=== PATIENT | male | born 1955 | race Two or more races ===

== ENCOUNTER 2025-07-06 21:41 | Emergency (ER) | payer OTHER ==
[~2025-07-06] VITALS: Ht 175.3 cm; Wt 93.0 kg
[2025-07-06 22:00] VITALS: PULSE 132; RESP 24; O2SAT 96
--- NOTE | 2025-07-06 22:06 | ED.PDOC ---
SOB-HPI HPI Comments 69 year old male presents to the ED with a chief complaint of shortness of breath onset 4 days. Patient states he began experiencing shortness of breath 4 days ago, worsens when he lays down. He is also experiencing BLE swelling, weakness, constipation and palpitations. Upon ED arrival O2 sat was 89% on RA, was placed on 4L O2 sat was 95%. Denies fever, chills, chest pain, dizziness, headache, blurred vision, nausea, vomiting, cough, cold, congestion, abdominal pain. No other symptoms or modifying factors present at this time. Chief Complaint: Shortness of Breath Time Seen by MD: 22:00 Reviewed notes: Medications, Allergies Information Source: Patient Mode of Arrival: Wheelchair Severity: Mild Timing: Days Duration: Since onset Context: At Rest PE Risk Factors: None History of: None Prehospital treatment: None Modifying Factors: Nothing Associated Signs and Symptoms: Leg Swelling, Other Past Medical History PAST MEDICAL HISTORY: Denies Surgical History: Denies all surgeries Family History Family History: Reviewed,noncontributory to illness, No family hx of Cancer, No family hx of DM, No family hx of Heart eduin, No family hx of HTN, No family hx ofKidney eduin, No family hx of Liver eduin, No family hx of Lung eduin, No family hx of Stroke Social History Smoker: Non-Smoker Alcohol: Denies ETOH Use Drugs: Denies Drug Use Lives In: Home Constitutional: reports: weakness; denies: chills, diaphoresis, fatigue, fever, malaise, sweats, others EENTM: denies: blurred vision, double vision, ear bleeding, ear discharge, ear drainage, ear pain, ear ringing, eye pain, eye redness, hearing loss, mouth pain, mouth swelling, nasal discharge, nose bleeding, nose congestion, nose pain, photophobia, tearing, throat pain, throat swelling, voice changes, others Respiratory: reports: shortness of breath; denies: cough, hemoptysis, orthopnea, SOB at rest, SOB with excertion, stridor, wheezing, others Cardiovascular: reports: palpitations; denies: chest pain, dizzy spells, diaphoresis, Dyspnea on exertion, edema, irregular heart beat, left arm pain, lightheadedness, PND, syncope, others Gastrointestinal: reports: constipated; denies: abdomen distended, abdominal pain, blood streaked bowels, diarrhea, dysphagia, difficulty swallowing, hematemesis, melena, nausea, poor appetite, poor fluid intake, rectal bleeding, rectal pain, vomiting, others Genitourinary: denies: burning, dysuria, flank pain, frequency, hematuria, incontinence, penile discharge, penile sore, pain, testicle pain, testicle swelling, urgency, others Neurological: reports: weakness; denies: dizziness, fainting, headache, left sided numbness, left sided weakness, numbness, paresthesia, pre-existing deficit, right sided numbness, right sided weakness, seizure, speech problems, tingling, tremors, others Musculoskeletal: reports: others (BLE swelling); denies: back pain, gout, joint pain, joint swelling, muscle pain, muscle stiffness, neck pain Integumetry: denies: bruises, change in color, change in hair/nails, dryness, laceration, lesions, lumps, rash, wounds, others Allergic/Immunocompromised: denies: Difficulty Healing, Frequent Infections, Hives, Itching, others Hematologic/Lymphatic: denies: anemia, blood clots, easy bleeding, easy bruising, swollen glands, others Endocrine: denies: excessive hunger, excessive sweating, excessive thirst, excessive urination, flushing, intolerance to cold, intolerance to heat, unexplained weight gain, unexplained weight loss, others Psychiatric: denies: anxiety, bipolar disorder, depression, hopeless, panic disorder, schizophrenia, sleepless, suicidal, others All Other Systems: Reviewed and Negative Physical Exam General Appearance: Normal HEENT: Normal ENT Inspection, Pharynx Normal, TMs Normal Neck: Full Range of Motion, Non-Tender, Normal, Normal Inspection Respiratory: Decreased Breath Sounds, Other Cardiovascular: No Edema, No JVD, No Murmur, No Gallop, Normal Peripheral Pulses, Regular Rate/Rhythm Breast Exam: Deferred Gastrointestinal: No Organomegaly, Non Tender, No Pulsatile Mass, Normal Bowel Sounds, Soft Genitalia: Deferred Pelvic: Deferred Rectal: Deferred Extremities: No calf tenderness, Normal capillary refill, Normal inspection, Normal range of motion, Non-tender, No pedal edema Musculoskeletal : Apperance: Normal 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 Was a procedure done?: No Differential Dx Differential Diagnosis: Asthma, Bronchitis, CHF, COPD, Pulmonary Embolism, Respiratory Distress, URI, Other X-Ray, Labs, Meds, VS Vital Signs Date Time Temp Pulse Resp B/P (MAP) Pulse Ox O2 Delivery O2 Flow Rate FiO2 07/07/25 01:00 98 26 138/98 (111) 94 07/07/25 00:40 97 07/06/25 23:36 101 143/93 07/06/25 23:00 101 07/06/25 23:00 99 25 139/95 (110) 94 07/06/25 22:35 112 150/82 07/06/25 22:20 112 22 150/82 (104) 96 07/06/25 22:06 127 07/06/25 22:00 132 24 96 Simple Mask* 10 99 07/06/25 22:00 127 07/06/25 22:00 98.5 132 22 155/85 (108) 96 98.5 07/06/25 21:43 98.3 114 22 153/99 89 98.3 Lab Test 07/07/25 00:50 07/06/25 23:02 07/06/25 22:50 07/06/25 22:04 Range/Units Troponin I High Sensitivity 47 41 39 </=54 ng/L Blood Gas Specimen Type Arterial Blood Gas Sample Site Left radial Blood Gas Patient Temperature 37.0 Arterial Blood Date Drawn [id number] Arterial Blood pH 7.469 H 7.350-7.450 Arterial Blood Partial Pressure CO2 29.1 L 35.0-48.0 mmHg Arterial Blood Partial Pressure O2 81.6 L 83.0-108.0 mmHg Arterial Blood HCO3 20.7 L 21.0-28.0 mmol/L Arterial Blood Oxygen Saturation 96.5 94.0-98.0 % Arterial Blood Base Excess -1.8 -2.0-3.0 mmol/L Arterial Blood Oxyhemoglobin 95.0 94.0-98.0 % Arterial Blood Carboxyhemoglobin 1.3 0.5-1.5 % Arterial Blood Methemoglobin 0.3 0.0-1.5 % Bharathi Test Yes Blood Gas Total Hemoglobin 14.40 13.5-17.5 g/dL Blood Gas Liter Flow 9.00 Blood Gas Modality Mask - simple FiO2 % 56.0 White Blood Count 10.4 4.4-10.8 10^3/uL Red Blood Count 5.12 4.5-5.90 10^6/uL Hemoglobin 14.3 13.5-17.5 g/dL Hematocrit 43.3 41.0-53.0 % Mean Corpuscular Volume 84.5 80.0-100.0 fL Mean Corpuscular Hemoglobin 28.0 28.0-32.0 pg Mean Corpuscular Hemoglobin Concent 33.1 32.0-36.0 g/dL Red Cell Distribution Width 16.3 H 11.8-14.3 % Platelet Count 229 140-450 10^3/uL Mean Platelet Volume 8.6 6.9-10.8 fL Neutrophils (%) (Auto) 70.6 37.0-80.0 % Lymphocytes (%) (Auto) 20.7 10.0-50.0 % Monocytes (%) (Auto) 5.9 0.0-12.0 % Eosinophils (%) (Auto) 2.1 0.0-7.0 % Basophils (%) (Auto) 0.7 0.0-2.0 % Neutrophils # (Auto) 7.3 1.6-8.6 10 ^3/uL Lymphocytes # (Auto) 2.2 0.4-5.4 10 ^3/uL Monocytes # (Auto) 0.6 0-1.3 10 ^3/uL Eosinophils # (Auto) 0.2 0-0.8 10 ^3/uL Basophils # (Auto) 0.1 0-0.2 10 ^3/uL Nucleated Red Blood Cells 0.1 % Prothrombin Time 11.9 H 9.3-11.8 sec Prothrombin Time INR 1.14 0.9-1.15 Activated Partial Thromboplast Time 28.1 24.5-34.5 SEC Sodium Level 144 136-145 mmol/L Potassium Level 3.7 3.5-5.1 mmol/L Chloride Level 111 H 98-107 mmol/L Carbon Dioxide Level 21 20-31 mmol/L Anion Gap 12 5-15 Blood Urea Nitrogen 10 9-23 mg/dL Creatinine 0.68 L 0.700-1.30 mg/dL Glomerular Filtration Rate Calc 99 >90 mL/min BUN/Creatinine Ratio 14.7 10.0-20.0 Serum Glucose 100 74-106 mg/dL Calcium Level 8.5 L 8.7-10.4 mg/dL Magnesium Level 1.9 1.6-2.6 mg/dL Total Bilirubin 1.2 H 0.2-1.0 mg/dL Aspartate Amino Transferase (AST) 21 13-40 U/L Alanine Aminotransferase (ALT) 12 7-40 U/L Alkaline Phosphatase 99 46-116 U/L B-Type Natriuretic Peptide 854.54 0-100 pg/mL Total Protein 7.1 5.7-8.2 g/dL Albumin 4.4 3.2-4.8 g/dL Thyroid Stimulating Hormone (TSH) 0.67 0.55-4.78 uIU/mL Free Thyroxine (T4) Calculated 1.48 0.89-1.76 ng/dL Test 07/06/25 22:03 Range/Units POC Glucose 102 70-106 mg/dl Current Medications Medications (Trade) Dose Ordered Sig/Karey Route Start Time Stop Time Status Last Admin Metoprolol Tartrate (Lopressor) 5 mg Q5M IV 07/06/25 22:15 07/06/25 22:26 DC 07/06/25 23:36 [place] [address] Ph: [phone] DIAGNOSTIC IMAGING Diagnostic Imaging Report : [id number] Signed PATIENT: KAVIN CLARKE ACCT: [id number] UNIT: [id number] : 1955 LOC: ER ROOM / BED: / AGE / SEX: 69 / M ADM STATUS: REG ER SERVICE 00 ORDERING PHYSICIAN: ELLI ACUÑA MD PROCEDURE(s): CXRP - CHEST PORTABLE REASON: sob ORDER NUMBER(s): [id number], ACCESSION NUMBER(s): [id number] INDICATION: sob TECHNIQUE: Frontal view of the chest. COMPARISON: None FINDINGS/IMPRESSION: A pacer overlies the left mid and lower thorax, obscuring evaluation. Small left pleural effusion with adjacent opacity. Hazy bilateral pulmonary opacities with prominence of the interstitial markings. Prominence of the cardiomediastinal silhouette, likely accentuated by technique. No pneumothorax. No acute osseous abnormality. Incompletely assessed cervical fusion hardware. ATED BY: RAFAEL TRIPP MD DICTATED DATE/TIME: 07/06/252253 SIGNED BY: RAFAEL TRIPP MD SIGNED DATE/TIME: 07/06/252253 CC: Time of 1ST Reevaluation: 22:30 Reevaluation 1ST: Unchanged Patient Education/Counseling: Diagnosis, Treatment, Prognosis Family Education/Counseling: No Family Present SEPSIS Sepsis Screen Date sepsis recognized/suspect: Jul 06, 2025 Time Sepsis recognized/suspect: 2145 Recent Procedure: No On Antibiotic Therapy: No Respiratory Rate >20: Yes Heart Rate >90: Yes Temp<36 C (96.8 F) or >38.3 C: No SBP <90 or MAP <65 mmHG: No New Acute Mental Status Change: No Is the patient on CPAP, BIPAP,: No Physician Orders Chest Portable (07/06/25 22:01) Urinalysis (07/06/25 22:01) Abg W/ Co-Ox (07/06/25 22:39) Lactic Acid W/ Reflex Order (07/07/25 02:34) Blood Culture (07/07/25 02:34) Ceftriaxone Ivpb Rocephin (07/07/25 02:45) Vital Signs Date Time Temp Pulse Resp B/P (MAP) Pulse Ox O2 Delivery O2 Flow Rate FiO2 07/07/25 01:00 98 26 138/98 (111) 94 07/07/25 00:40 97 07/06/25 23:36 101 143/93 07/06/25 23:00 101 07/06/25 23:00 99 25 139/95 (110) 94 07/06/25 22:35 112 150/82 07/06/25 22:20 112 22 150/82 (104) 96 07/06/25 22:06 127 07/06/25 22:00 132 24 96 Simple Mask* 10 99 07/06/25 22:00 127 07/06/25 22:00 98.5 132 22 155/85 (108) 96 98.5 07/06/25 21:43 98.3 114 22 153/99 89 98.3 Laboratory Tests Test 07/06/25 22:04 White Blood Count 10.4 10^3/uL (4.4-10.8) Medications Medications Dose Ordered Sig/Karey Route Start Time Stop Time Status Last Admin Dose Admin Metoprolol Tartrate 5 mg Q5M IV 07/06/25 22:15 07/06/25 22:26 DC 07/06/25 23:36 Departure 1 Departure Time of Disposition: 02:37 Impression: Primary Impression: Cardiac arrhythmia Additional Impressions: Left bundle branch block Respiratory failure with hypoxia Disposition: 02 SHORT TERM HOSPITAL Admit to: Tele Condition: Guarded Comments 69-year-old male with severe respiratory distress. Patient is requiring oxygen. Chest x-ray shows left pleural effusion and some interstitial pulmonary opacities. On lab review his total bilirubin was slightly elevated 1.2. Chloride 111. Troponin normal at 47. BNP is elevated at 854. Patient was given Lasix and aspirin and IV Rocephin and azithromycin antibiotics. Patient is needing oxygen. Patient will be need to be admitted for supportive care and further workup. We will call [facility] to arrange to either admit here or to transfer. Critical Care Note Critical Care Time?: No Stability Stability form required: No Heart Score Heart Score: Heart Score Response (Comments) Value History Moderate Suspicious 1 EKG Repolarization Disturb 1 Age >65 2 Risk Factors 1 or 2 risk factors 1 Troponin Normal limit 0 Total 5 I personally scribed for ELLI ACUÑA MD ([email or web address]) on 07/06/25 at 22:06. Electronically submitted by Melissa Casillas ([email or web address]). I personally scribed for ELLI ACUÑA MD ([email or web address]) on 07/06/25 at 23:26. Electronically submitted by Melissa Casillas ([email or web address]). ELLI ACUÑA MD Jul 06, 2025 22:06
--- NOTE | 2025-07-06 22:08 | ECG ---
[facility] Test Date: 2025-07-06 Test Time: 22:00:02 Pat Name: KAVIN CLARKE Department: [facility] ED Patient ID: [facility]-[id number] Room: Gender: M Clinical Physician Assistant: : 1955 Requested By: ELLI ACUÑA Order Number: [id number] Reading MD: Trevor Campbell Measurements Intervals [place] Rate: 127 P: 192 RI: 82 QRS: -50 QRSD: 158 T: 93 QT: 422 QTc: 614 Interpretive Statements Sinus or ectopic atrial tachycardia Left bundle branch block Baseline wander in lead(s) II,III,aVF,V3,V5 Electronically Signed On 07-07-2025 22:19:20 PDT by Trevor Campbell Please click the below link to view image of tracing.
[2025-07-06] MEDS: METOPROLOL TARTRATE 1MG/1ML-5ML VIAL IV SCH (22:25)
[2025-07-06 22:34] LABS: Hematocrit 43.3 % (41.0-53.0); Hemoglobin 14.3 g/dL (13.5-17.5); Mean Corpuscular Hemoglobin 28.0 pg (28.0-32.0); Mean Corpuscular Volume 84.5 fL (80.0-100.0); Nucleated Red Blood Cells % 0.1 %
[2025-07-06 22:48] LABS: Alanine Aminotransferase 12 U/L (7-40); Albumin 4.4 g/dL (3.2-4.8); Alkaline Phosphatase 99 U/L (46-116); Anion Gap 12 (5-15); BUN/Creatinine Ratio 14.7 (10.0-20.0); Blood Urea Nitrogen 10 mg/dL (9-23); Carbon Dioxide 21 mmol/L (20-31); Glucose 100 mg/dL (74-106); Magnesium 1.9 mg/dL (1.6-2.6); Potassium 3.7 mmol/L (3.5-5.1); Sodium 144 mmol/L (136-145); Total Protein 7.1 g/dL (5.7-8.2)
[2025-07-06 22:49] LABS: Bilirubin, Total 1.2 mg/dL (0.2-1.0)
[2025-07-06 22:57] LABS: INR 1.14 (0.9-1.15); Partial Thromboplastin Time 28.1 SEC (24.5-34.5); Prothrombin Time 11.9 sec (9.3-11.8)
--- NOTE | 2025-07-06 22:57 | DVH ---
INDICATION: sob TECHNIQUE: Frontal view of the chest. COMPARISON: None FINDINGS/IMPRESSION: A pacer overlies the left mid and lower thorax, obscuring evaluation. Small left pleural effusion wit h adjacent opacity. Hazy bilateral pulmonary opacities with prominence of the interstitial markings. Prominence of the cardiomediastinal silhouette, likely accentuated by technique. No pneumothorax. No acute osseous abnormality. Incompletely assessed cervical fusion hardware.
[2025-07-06 22:59] LABS: Base Excess -1.8 mmol/L (-2.0-3.0)
[2025-07-06 23:06] LABS: Calcium 8.5 mg/dL (8.7-10.4); Chloride 111 mmol/L (98-107)
--- NOTE | 2025-07-07 01:28 | ECG ---
[facility] Test Date: 2025-07-07 Test Time: 00:40:19 Pat Name: KAVIN CLARKE Department: [facility] ED Patient ID: [facility]-[id number] Room: Gender: M Manager Client: CHARLES : 1955 Requested By: ELLI ACUÑA Order Number: [id number] Reading MD: Trevor Campbell Measurements Intervals [place] Rate: 97 P: 46 CT: 180 QRS: 267 QRSD: 163 T: 90 QT: 430 QTc: 547 Interpretive Statements Sinus tachycardia Ventricular premature complex Probable left atrial enlargement IVCD, consider atypical LBBB Baseline wander in lead(s) V1,V2,V5,V6 Electronically Signed On 07-07-2025 22:20:04 PDT by Trevor Campbell Please click the below link to view image of tracing.
[2025-07-07] MEDS: AZITHROMYCIN 500MG/ 250ML 250 ML IV ONE (03:07)
[2025-07-07] MEDS: FUROSEMIDE 40 MG/4 ML VIAL IV ONE (03:07)
[2025-07-07] MEDS: LORazepam 2MG/ML-1ML VIAL IV ONE ×2 (03:48→03:49)
[2025-07-07 07:45] VITALS: PULSE 92; RESP 16; O2SAT 94
[2025-07-07] MEDS: FUROSEMIDE 40 MG/4 ML VIAL ONE (08:43)
[2025-07-07 08:53] LABS: COVID19 ANTIGEN SOFIA FIA NEGATIVE (NEGATIVE)
[2025-07-07 10:04] LABS: Urine Budding Yeast OCCASIONAL /hpf (None Seen); Urine Protein, UAD 1+ (Negative)
[2025-07-07 12:22] VITALS: BP 146/88; PULSE 110; RESP 20; TEMP 97.7; O2SAT 91
--- NOTE | 2025-07-21 07:18 | ECG ---
[facility] Test Date: 2025-07-06 Test Time: 23:00:32 Pat Name: KAVIN CLARKE Department: [facility] ED Patient ID: [facility]-[id number] Room: Gender: M Utilization Specialist: : 1955 Requested By: ELLI ACUÑA Order Number: [id number] Reading MD: Trevor Campbell Measurements Intervals [place] Rate: 101 P: 45 GA: 165 QRS: -52 QRSD: 164 T: 126 QT: 412 QTc: 535 Interpretive Statements Sinus tachycardia Left bundle branch block Baseline wander in lead(s) I,III,aVR,aVL,aVF,V2,V3,V4,V6 Electronically Signed On 07-23-2025 17:50:15 PDT by Trevor Campbell Please click the below link to view image of tracing.
== END 2025-07-07 12:20 | disposition short-term general hospital (02) ==
LOC: ER 21:41
DX: I44.7 Left bundle-branch block, unspecified (principal); J96.91 Respiratory failure, unspecified with hypoxia; Z20.822 Contact with and (suspected) exposure to COVID-19
CPT/HCPCS: 36415; 36600; 71045; 80053; 81001; 82805; 82947; 83605; 83735; 83880; 84439; 84443; 84484; 85025; 85610; 85730; 87040; 87426; 87804; 93005; 96365; 96375; 99285; J0456; J1938; J2060; 82962